=== PATIENT | male | born 2000 ===

== ENCOUNTER 2021-01-11 23:34 | Emergency (ER) | payer SELFPAY ==
[2021-01-11 23:53] VITALS: BP 121/66
--- NOTE | 2021-01-12 00:09 | Emergency Department Report ---
ED Fall HPI - General Chief Complaint: Wound/Laceration Stated Complaint: FALL/FACIAL LACERATION/ETOH Source: patient Mode of arrival: Ambulatory - History of Present Illness Initial Comments: Per family, patient is a 20-year-old male who presented to the ED for evaluation after he tripped down the stairs and fell down landing on his face and sustained an upper lip laceration wound about 1 hour ago. The family states that the patient was intoxicated on alcohol when he tried to walk down the stairs and lost balance and fell down hitting his face and as a result his prosthetic teeth fell off his mouth. Family states that the patient did not lose any consciousness, has not had any nausea or vomiting, change in vision, chest pain or shortness of breath, dizziness or syncope, seizures, numbness and tingling or weakness of upper and lower extremities bilaterally or neck pain. MD Complaint: fall, other (facial laceration) -: Sudden, hour(s) (1) Fall From: standing, down stairs (#) (3) When Fall Occurred: 1 hour [employer] Fall Witnessed: yes, by family Place Fall Occurred: home Loss of Consciousness: none Prolonged Down Time?: no Symptoms Prior to Fall: none, other (Alcohol intoxication) Location: head, face Severity: moderate Severity scale (0 -10): 6 Quality: sharp, aching Context: tripped/slipped Associated Symptoms: denies: headache, neck pain, numbness, weakness, chest paint, shortness of breath, abdominal pain, hematuria, unable to walk, lightheaded, vertigo, confusion - Related Data Previous Rx's Medication Instructions Recorded Last Taken Type Ibuprofen [Motrin] 800 mg PO Q8HR PRN #24 tablet 01/12/21 Unknown Rx cephALEXin [Keflex] 500 mg PO Q8HR #30 cap 01/12/21 Unknown Rx Allergies Allergy/AdvReac Type Severity Reaction Status Date / Time No Known Allergies Allergy Verified 01/12/21 01:17 ED Review of Systems ROS: Stated complaint: FALL/FACIAL LACERATION/ETOH Other details as noted in HPI Constitutional: denies: chills, fever Eyes: denies: eye pain, eye discharge, vision change ENT: other (Bleeding right upper lip laceration wound). denies: ear pain, throat pain Respiratory: denies: cough, shortness of breath, wheezing Cardiovascular: denies: chest pain, palpitations Endocrine: no symptoms reported Gastrointestinal: denies: abdominal pain, nausea, diarrhea Genitourinary: denies: urgency, dysuria Musculoskeletal: denies: back pain, joint swelling, arthralgia Skin: denies: rash, lesions Neurological: denies: headache, weakness, paresthesias Psychiatric: denies: anxiety, depression Hematological/Lymphatic: denies: easy bleeding, easy bruising ED Past Medical Hx - Past Medical History Previous Medical History?: No - Surgical History Past Surgical History?: No - Medications Home Medications: Home Medications Medication Instructions Recorded Confirmed Last Taken Type Ibuprofen [Motrin] 800 mg PO Q8HR PRN #24 tablet 01/12/21 Unknown Rx cephALEXin [Keflex] 500 mg PO Q8HR #30 cap 01/12/21 Unknown Rx ED Physical Exam - General Limitations: Language Barrier General appearance: alert, in no apparent distress - Head Head exam: Present: other (Bleeding 4 cm laceration wound diagonally on upper lip) - Eye Eye exam: Present: normal appearance, PERRL, EOMI Pupils: Present: normal accommodation - ENT ENT exam: Present: mucous membranes moist, TM's normal bilaterally, normal external ear exam, other (Bleeding 4 cm laceration wound diagonally on upper lip) - Neck Neck exam: Present: normal inspection, full ROM - Respiratory Respiratory exam: Present: normal lung sounds bilaterally. Absent: respiratory distress, wheezes, rales, rhonchi, stridor, chest wall tenderness, accessory muscle use, decreased breath sounds - Cardiovascular Cardiovascular Exam: Present: normal rhythm, tachycardia, normal heart sounds. Absent: systolic murmur, diastolic murmur, rubs, gallop - GI/Abdominal GI/Abdominal exam: Present: soft, normal bowel sounds. Absent: tenderness, guarding, rebound, hyperactive bowel sounds, hypoactive bowel sounds - Extremities Exam Extremities exam: Present: normal inspection, full ROM, normal capillary refill - Back Exam Back exam: Present: normal inspection, full ROM. Absent: tenderness, CVA tenderness (R), CVA tenderness (L), muscle spasm, paraspinal tenderness, vertebral tenderness - Neurological Exam Neurological exam: Present: alert, oriented X3, CN II-XII intact, normal gait, reflexes normal - Psychiatric Psychiatric exam: Present: normal affect, normal mood - Skin Skin exam: Present: warm, dry, intact, normal color, other (Bleeding 4 cm laceration wound diagonally on upper lip). Absent: rash ED Course Vital Signs 01/11/21 23:52 Pulse Rate 104 H Respiratory 18 Rate Blood Pressure 121/66 O2 Sat by Pulse 98 Oximetry - Laceration /Wound Repair Upper Face Wound Location: mouth (Upper lip laceration) Wound Length (cm): 4 Wound's Depth, Shape: superficial, linear Wound Explored: contaminated Irrigated w/ Saline (ccs): 200 Betadine Prep?: No Anesthesia: 1% Lidocaine Volume Anesthetic (ccs): 5 Wound Debrided: extensive Wound Repaired With: sutures Suture Size/Type: 5:0, proline Number of Sutures: 10 Layer Closure?: No Sterile Dressing Applied?: No Progress: Patient tolerated procedure well after application of lidocaine 1% anesthetic solution. ED Medical Decision Making - Radiology Data Radiology results: report reviewed, image reviewed [address] [address] Cat Scan Report Signed Patient: JESUS YOUNG MR#: [id number] : 2000 Acct:[id number] Age/Sex: 20 / M ADM Date: 01/11/21 Loc: ED Attending Dr: Ordering Physician: JUNAID AMARAL Date of Service: 01/12/21 Procedure(s): CT head/brain wo con Accession Number(s): [id number] cc: JUNAID AMARAL CT HEAD WITHOUT CONTRAST INDICATION / CLINICAL INFORMATION: Fall - pain. Head pain after a fall. TECHNIQUE: All CT scans at this location are performed using CT dose reduction for ALARA by means of automated exposure control. COMPARISON: None available. FINDINGS: HEMORRHAGE: None. EXTRA-AXIAL SPACES: Normal in size and morphology for the patient's age. VENTRICULAR SYSTEM: Normal in size and morphology for the patient's age. CEREBRAL PARENCHYMA: No significant abnormality. No acute territorial infarct. MIDLINE SHIFT / HERNIATION: None. CEREBELLUM / BRAINSTEM: No significant abnormality. ORBITS: Normal as visualized. SOFT TISSUES: No significant abnormality. SKULL: No significant abnormality. PARANASAL SINUSES / MASTOID AIR CELLS: Normal as visualized. ADDITIONAL FINDINGS: None. IMPRESSION: 1. No acute intracranial abnormality. Signer Name: Rudi Heck MD Signed: 01/12/2021 2:00 AM Workstation Name: [id number] Transcribed By: DT Dictated By: Von Heck MD Electronically Authenticated By: Von Heck MD Signed Date/Time: 01/12/21199 DD/ 6 TD/TT: [place] [address] Cat Scan Report Signed Patient: JESUS YOUNG MR#: [id number] : 2000 Acct:[id number] Age/Sex: 20 / M ADM Date: 01/11/21 Loc: ED Attending Dr: Ordering Physician: JUNAID AMARAL Date of Service: 01/12/21 Procedure(s): CT cervical spine wo con Accession Number(s): [id number] cc: JUNAID AMARAL CT CERVICAL SPINE WITHOUT CONTRAST INDICATION / CLINICAL INFORMATION: Fall - pain. Neck pain after a fall. TECHNIQUE: Axial CT images were obtained through the cervical spine. Sagittal and coronal reformatted images were produced. All CT scans at this location are performed using CT dose reduction for ALARA by means of automated exposure control. COMPARISON: None available. FINDINGS: VERTEBRAE: No significant abnormality. ALIGNMENT: No significant abnormality. DISC SPACES: No significant abnormality. FACET JOINTS: No significant abnormality. CRANIOCERVICAL JUNCTION:No significant abnormality. SPINAL CANAL: No significant abnormality. PARASPINAL SOFT TISSUES: No significant abnormality. ADDITIONAL FINDINGS: None. LUNG APICES: No significant abnormality of visualized lungs. IMPRESSION: 1. No significant abnormality. Signer Name: uRdi Heck MD Signed: 01/12/2021 2:04 AM Workstation Name: [id number] Transcribed By: DT Dictated By: Von Heck MD Electronically Authenticated By: Von Heck MD Signed Date/Time: 01/12/21203 DD/ 1 TD/TT: [facility] [address] [place] [address] Cat Scan Report Signed Patient: JESUS YOUNG MR#: [id number] : 2000 Acct:[id number] Age/Sex: 20 / M ADM Date: 01/11/21 Loc: ED Attending Dr: Ordering Physician: JUNAID AMARAL Date of Service: 01/12/21 Procedure(s): CT facial bones wo con Accession Number(s): [id number] cc: JUNAID AMARAL CT MAXILLOFACIAL WITHOUT CONTRAST INDICATION / CLINICAL INFORMATION: Fall - pain. Facial pain after a fall. TECHNIQUE: All CT scans at this location are performed using CT dose reduction for ALARA by means of automated exposure control. COMPARISON: None available. FINDINGS: FACIAL BONES: No acute fracture. Left frontal incisor tooth appears absent. PARANASAL SINUSES: No significant abnormality. ORBITS: No significant abnormality. SOFT TISSUES: Soft tissue swelling and irregularity of the upper lip with several tiny radiodense bodies which could represent debris or tooth fragments. VISUALIZED INTRACRANIAL STRUCTURES: No significant abnormality. ADDITIONAL FINDINGS: None. IMPRESSION: 1. No facial bone fracture. 2. Soft tissue swelling and irregularity of the upper lip. Signer Name: Rudi Heck MD Signed: 01/12/2021 2:02 AM Workstation Name: [id number] Transcribed By: DT Dictated By: Von Heck MD Electronically Authenticated By: Von Heck MD Signed Date/Time: 01/12/21201 DD/ 9 TD/TT: - Medical Decision Making This is a 20-year-old male who presented to the ED for evaluation after he tripped down the stairs and fell down landing on his face and sustained an upper lip laceration wound about 1 hour ago. The family states that the patient was intoxicated on alcohol when he tried to walk down the stairs and lost balance and fell down hitting his face and as a result his prosthetic teeth fell off his mouth. The head CT scan without contrast showed no acute intracranial abnormalities or hemorrhage. The C-spine CT scan without contrast showed no cervical disc or spine fractures and subluxations. The facial CT scan without contrast showed no facial bone fractures or subluxations. Patient upper lip laceration was sutured per protocol and the patient tolerated procedure well. Patient was discharged home on prophylactic antibiotics and pain medications and advised to follow-up with his primary care physician in 5 to 7 days for reevaluation or return to the ED immediately if symptoms get worse. Patient was also advised to return to the ED in 8 to 10 days for suture removal. - Differential Diagnosis Facial contusion; scalp contusion; lip laceration; Critical care attestation.: If time is entered above; I have spent that time in minutes in the direct care of this critically ill patient, excluding procedure time. ED Disposition Clinical Impression: Contusion of face, scalp, and neck Qualifiers: Encounter type: initial encounter Qualified Code(s): S00.83XA - Contusion of other part of head, initial encounter Laceration of lip without complication Qualifiers: Encounter type: initial encounter Qualified Code(s): S01.511A - Laceration without foreign body of lip, initial encounter Disposition: 01 HOME / SELF CARE / HOMELESS Is pt being admited?: No Does the pt Need Aspirin: No Condition: Stable Instructions: Laceration Care, Adult, [id number], Facial Laceration, [id number], Sutured Wound Care, [id number], Facial or Scalp Contusion, [id number] Additional Instructions: The head CT scan without contrast, the facial CT scan without contrast and the C-spine CT scan without contrast showed no acute abnormalities. Therefore take medications with food, drink plenty of fluids and follow-up with your primary care physician in 5 to 7 days for reevaluation. Return to the ED immediately if symptoms get worse. Otherwise return to the ED or to your primary care phy sician in 8 to 10 days for suture removal. Prescriptions: cephALEXin [Keflex] 500 mg PO Q8HR #30 cap Ibuprofen [Motrin] 800 mg PO Q8HR PRN #24 tablet PRN Reason: Pain , Severe (7-10) Referrals: [facility] [Provider Group] - 3-5 Days Time of Disposition: 04:22 Print Language: NEPALI
[2021-01-12] MEDS ORDERED: TETANUS,DIPH,PERTUSS(ACELL) VACCINE 0.5 ML SYRINGE IM ONE ×2 (01:00→01:17)
[2021-01-12] MEDS ORDERED: LIDOCAINE-MPF (1%) 10 MG/1 ML VIAL 5 ML INFILTRATI ONE (01:00)
--- NOTE | 2021-01-12 02:04 | Cat Scan Report ---
CT HEAD WITHOUT CONTRAST INDICATION / CLINICAL INFORMATION: Fall - pain. Head pain after a fall. TECHNIQUE: All CT scans at this location are performed using CT dose reduction for ALARA by means of automated exposure control. COMPARISON: None available. FINDINGS: HEMORRHAGE: None. EXTRA-AXIAL SPACES: Normal in size and morphology for the patient's age. VENTRICULAR SYSTEM: Normal in size and morphology for the patient's age. CEREBRAL PARENCHYMA: No significant abnormality. No acute territorial infarct. MIDLINE SHIFT / HERNIATION: None. CEREBELLUM / BRAINSTEM: No significant abnormality. ORBITS: Normal as visualized. SOFT TISSUES: No significant abnormality. SKULL: No significant abnormality. PARANASAL SINUSES / MASTOID AIR CELLS: Normal as visualized. ADDITIONAL FINDINGS: None. IMPRESSION: 1. No acute intracranial abnormality. Signer Name: Rudi Heck MD Signed: 01/12/2021 2:00 AM Workstation Name: [email or web address][id number]
--- NOTE | 2021-01-12 02:07 | Cat Scan Report ---
CT MAXILLOFACIAL WITHOUT CONTRAST INDICATION / CLINICAL INFORMATION: Fall - pain. Facial pain after a fall. TECHNIQUE: All CT scans at this location are performed using CT dose reduction for ALARA by means of automated exposure control. COMPARISON: None available. FINDINGS: FACIAL BONES: No acute fracture. Left frontal incisor tooth appears absent. PARANASAL SINUSES: No significant abnormality. ORBITS: No significant abnormality. SOFT TISSUES: Soft tissue swelling and irregularity of the upper lip with several tiny radiodense bod ies which could represent debris or tooth fragments. VISUALIZED INTRACRANIAL STRUCTURES: No significant abnormality. ADDITIONAL FINDINGS: None. IMPRESSION: 1. No facial bone fracture. 2. Soft tissue swelling and irregularity of the upper lip. Signer Name: Rudi Heck MD Signed: 01/12/2021 2:02 AM Workstation Name: [id number]
--- NOTE | 2021-01-12 02:08 | Cat Scan Report ---
CT CERVICAL SPINE WITHOUT CONTRAST INDICATION / CLINICAL INFORMATION: Fall - pain. Neck pain after a fall. TECHNIQUE: Axial CT images were obtained through the cervical spine. Sagittal and coronal reformatted images were produced. All CT scans at this location are performed using CT dose reduction for ALARA by means of automated exposure control. COMPARISON: None available. FINDINGS: VERTEBRAE: No significant abnormality. ALIGNMENT: No significant abnormality. DISC SPACES: No significant abnormality. FACET JOINTS: No significant abnormality. CRANIOCERVICAL JUNCTION:No significant abnormality. SPINAL CANAL: No significant abnormality. PARASPINAL SOFT TISSUES: No significant abnormality. ADDITIONAL FINDINGS: None. LUNG APICES: No significant abnormality of visualized lungs. IMPRESSION: 1. No significant abnormality. Signer Name: Rudi Heck MD Signed: 01/12/2021 2:04 AM Workstation Name: [id number]
== END 2021-01-12 04:33 | disposition home or self-care (01) ==
LOC: ED 23:34
DX: S01.511A Laceration without foreign body of lip, initial encounter (principal); Z79.899 Other long term (current) drug therapy; W10.8XXA Fall (on) (from) other stairs and steps, initial encounter; Y93.89 Activity, other specified; Y92.89 Other specified places as the place of occurrence of the external cause; Y99.8 Other external cause status
CPT/HCPCS: 70450; 70486; 72125; 90471; 90715; 99283